=== PATIENT | female | born 1980 | race Caucasian/White ===

== ENCOUNTER 2016-12-10 08:44 | Inpatient (IN) | payer OTHER ==
--- NOTE | ~2016-12-10 | PN ---
Unit #: [id number] #: [id number] Patient: VIVIANE NAYAK [id number] [facility] [address] [place] [address] [id number] I MR#: [id number] NAME: VIIVANE NAYAK ROOM: [facility] Age: 36 Sex: F Admission Date: 12/10/2016 : 1980 Attending Physician: Keith Frey M.D. Admitting Physician: Victor M Greer PROGRESS NOTES DATE 12/13/2016 DISCUSSION The patient is continuing to complain of anxiety and auditory hallucinations but to her credit does not request benzodiazepine medication today. Rather she request further upward titration of Geodon which will be increased to 60 mg b.i.d. Dictated by... Keith Frey M.D. CHAPIS/celestino TD: 12/13/2016 16:06 JOB #: [id number] SUSANNA PROGRESS NOTES X Keith Frey MD PROGRESS NOTE
--- NOTE | ~2016-12-10 | PN ---
Unit #: [id number] #: [id number] Patient: VIVIANE NAYAK [id number] [facility] [address] [place] [address] [id number] Marybel MR#: [id number] NAME: VIVIANE NAYAK ROOM: P121 Age: 36 Sex: F Admission Date: 12/10/2016 : 1980 Attending Physician: Keith Frey M.D. Admitting Physician: Victor M Greer NOTES DATE 12/11/2016 DISCUSSION The patient's incessant med seeking persist. The patient actually going so far as to interrupt this physician while seeing other patients to demand initiation of Ambien or benzodiazepine medication. She does report a history of over sedation with Seroquel and wishes to initiate a medication for "my mood and anxiety." I will begin Geodon 20 mg twice daily. She continues to endorse positive suicidal ideation but appears quite comfortable during today's interview. She did receive a dose of phenobarbital last evening after she had reported that she felt a "a seizure coming on" and is now requesting continuation of this medication. I have explained that phenobarbital is an older medication of which will not be continued. Dictated by... Keith Frey M.D. CB/kasandra TD: 12/12/2016 00:03 JOB #: [id number] SUSANNA PRADHAN NOTES X Keith Frey MD PROGRESS NOTE
--- NOTE | ~2016-12-10 | PN ---
Unit #: [id number] #: [id number] Patient: VIVIANE NAYAK [id number] [facility] [address] [place] [address] [id number] I MR#: [id number] NAME: VIVIANE NAYAK ROOM: [facility] Age: 36 Sex: F Admission Date: 12/10/2016 : 1980 Attending Physician: Keith Frey M.D. Admitting Physician: Victor M Greer PROGRESS NOTES DATE 12/12/2016 DISCUSSION The patient remains completely preoccupied with initiation of benzodiazepine medications in spite of the fact that this physician has firmly informed her that he has no intention of prescribing any such medication. She is reporting auditory hallucinations, and I will increase her Geodon to 40 mg twice daily. Dictated by... Keith Frey M.D. CB/raad TD: 12/12/2016 14:58 JOB #: [id number] SUSANNA PROGRESS NOTES X Keith Frey MD PROGRESS NOTE
--- NOTE | ~2016-12-10 | HP ---
Unit #: [id number] #: [id number] Patient: VIVIANE NAYAK [id number] [place] [address] [id number] I MR#: [id number] NAME: VIVIANE NAYAK ROOM: P121 Age: 36 Sex: F Admission Date: 12/10/2016 : 1980 Attending Physician: Keith Frey M.D. Admitting Physician: Keith Frey M.D. HISTORY AND PHYSICAL HISTORY OF PRESENT ILLNESS Viviane is a 36 year old admitted to [address] [place] [address] with increased anxiety. She has had numerous admissions to this facility. PAST MEDICAL HISTORY 1. Long history of polysubstance abuse to include heroin and alcohol. She denies anything currently. She is currently being treated with Suboxone. 2. Seizure disorder. 3. Morbid obesity. 4. Crohn disease. 5. Chronic obstructive pulmonary disease. 6. History of kidney stones. 7. History of psoriasis. 8. History of CHI. PAST SURGICAL HISTORY 1. Cholecystectomy. 2. History of ectopic . 3. Right hand. 4. Fractured leg with ORIF. 5. Right knee. 6. Partial collectomy. ALLERGIES Latex, Keflex. SOCIAL HISTORY Smokes one pack per day. Drinks alcohol on occasion. Has history of IV heroin but denies anything currently. FAMILY HISTORY Medically noncontributory. REVIEW OF SYSTEMS CONSTITUTIONAL: No fever or chills. HEENT: Denies any sore throat, ear pain or runny nose. CARDIOVASCULAR: Denies chest pain, irregular heart rhythm or palpitations. CHEST: Denies shortness of breath or cough. No hemoptysis. GASTROINTESTINAL: Denies nausea, vomiting, diarrhea or chronic constipation. Unit #: [id number] #: [id number] Patient: VIVIANE NAYAK ENDOCRINE: Denies history of increased thirst or urination. No recent significant weight loss or gain. GENITOURINARY: Denies dysuria, frequency, or hematuria. SKIN: Denies any rashes. HEMATOLOGIC: Denies history of increased bleeding or bruising. MUSCULOSKELETAL: Denies any hot, swollen joints. No generalized muscle pain. NEUROLOGIC: Denies problems with vision or speech. No frequent, severe headaches. No numbness, tingling or weakness in any extremities. Denies loss of bladder or bowel control. CURRENT MEDICATIONS 1. Prozac 20 mg daily 2. Suboxone 8/ 1 tab sublingually b.i.d. 3. Keppra 750 mg b.i.d. 4. Eskalith CR 450 mg b.i.d. 5. Milk of Magnesia p.r.n. 6. Maalox p.r.n. 7. Tylenol p.r.n. 8. Detox protocol PHYSICAL EXAMINATION GENERAL: Alert, obese, in no apparent distress. VITAL SIGNS: Blood pressure 130/70, heart rate 80, respirations 16, temperature 98.6. SKIN: Warm and dry without rash or lesion. HEENT: Normocephalic. TMs not viewed. Oral and nasal passages clear. Conjunctivae clear. Pupils equal, round and reactive to light and accommodation. Extraocular movements intact. NECK: Supple without lymphadenopathy or thyromegaly. HEART: Regular rate and rhythm without murmur. LUNGS: Clear. ABDOMEN: Soft, nontender. : Not done. EXTREMITIES: No evidence of cyanosis, clubbing or edema. Moves all extremities without focal deficit. NEUROLOGICAL: Grossly within normal limits. Cranial Nerves: II: Visual smith are intact. III, IV AND : Extraocular movements are intact. Pupils are equal, round and reactive to light. V: Facial sensation is grossly normal. VII: Facial movements and expression are normal. VIII: Auditory acuity grossly intact. IX, X: Uvula is midline. Phonation is normal. XI: Patient shrugs shoulders and turns head normally. XII: Tongue protrudes in the midline. Sensory and Motor Function: Sensory and motor sensation is grossly normal. Motor: moves all extremities well. Coordination: Gait is normal. Deep Tendon Reflexes: Intact. IMPRESSION Psychiatric admission. RECOMMENDATIONS PSYCHIATRIC: Per psychiatrist. MEDICAL: I see no contraindications to participating in facility's activities. MEDICAL PROGNOSIS Unit #: [id number] #: [id number] Patient: VIVIANE NAYAK Good. MEDICAL CONDITION Stable. Dictated by... Viviane Catherine P.A.-C. for Victor M Lynn/kasandra TD: 12/11/2016 01:55 JOB #: [id number] HISTORY AND PHYSICAL X Viviane Catherine HISTORY AND PHYSICAL
--- NOTE | ~2016-12-10 | PA ---
Unit #: [id number] #: [id number] Patient: VIVIANE NAYAK [id number] [facility] [address] [place] [address] [id number] Marybel MR#: [id number] NAME: VIVIANE NAYAK ROOM: P121 Age: 36 Sex: F Admission Date: 12/10/2016 : 1980 Date of Assessment: 12/10/2016 Attending Physician: Keith Frey M.D. Admitting Physician: Keith Frey M.D. PSYCHIATRIC ASSESSMENT IDENTIFYING INFORMATION The patient is a 36-year-old white female admitted to the [address] [place] [address] with suicidal ideation and some psychotic thinking. CHIEF COMPLAINT "When can I have my Xanax" INFORMANT(S) The patient, reliability is fair. HISTORY OF PRESENT ILLNESS The patient is a 36-year-old white male brought who presented to this facility reporting that she had been off medications for some time after she had been incarcerated for running from police. The patient reports that she had a seizure while in correction but reports that the version of events provided in the chart are not exactly accurate with regards to her compliance or lack thereof with medication. The patient was apparently jailed for 20 days and had recently been homeless. She has a history of significant substance abuse including abuse of heroin, methamphetamine and illicitly prescribed pain medications and is now prescribed Suboxone through the auspices of the [facility]. She also suffers from a seizure disorder for which she takes Lamictal and has recently been started on lithium carbonate medication to which she reports a history of positive response. When seen today the patient spends the better part of the interview demanding reinitiation of alprazolam which she claims was prescribe by women's health at [facility] at a dose of 2 mg twice daily. She as previously has been under the care of Dr. Armendariz at this facility and was last admitted in [address] Armendariz care. At that time her medications were Celexa and Seroquel. PAST PSYCHIATRIC HISTORY The patient has a long history of chemical dependence and is currently taking Suboxone. Her other prescribed psychotropic medications includes lithium carbonate only. PAST MEDICAL HISTORY The patient suffers from GERD and a seizure disorder. She is morbidly obese. MEDICATIONS 1. [place] carbonate 2. Keppra Unit #: [id number] #: [id number] Patient: VIVIANE NAYAK 3. Protonix 4. Suboxone ALLERGIES Cephalosporin, cephalexin and latex. FAMILY HISTORY Not contributory. SOCIAL HISTORY The patient has an extensive substance abuse history and as noted previously was recently incarcerated for fleeing police. She denies current abuse of any psychoactive substances. MENTAL STATUS EXAMINATION At this time reveals the patient to be a morbidly obese white female appearing her stated age. She is in no apparent physical distress at the time of the examination. She is awake, alert and oriented in all spheres. Her mood is mildly dysphoric. Her affect congruent. Speech is generally relevant and coherent. There are no gross deficits in memory or cognition noted. Intelligence is judged to be in the average range based on fund of knowledge. The patient is less than optimally cooperative during interview. She is currently endorsing positive suicidal ideation. She denies homicidal ideation. She continues to endorse positive auditory hallucinations and paranoia. Her judgment and insight appear to be significantly impaired. ASSETS AND LIABILITIES ASSETS: To be assessed. LIABILITIES: Lack of resources. ADMITTING DIAGNOSES 1. Major depressive disorder recurrent moderate. 2. Opioid use disorder. 3. Borderline personality traits versus disorder. 4. Seizure disorder. 5. Morbid obesity. 6. Crohn disease. 7. Chronic obstructive pulmonary disease. 8. History of closed head injury. PSYCHIATRIC PLAN/TREATMENT GOALS The patient remains hospitalized for safety and stabilization. It is interesting to note that Dr. Armendariz's discharge summary indicates that the patient was as fixated on reinitiation of benzodiazepines during that admission as she was during this evaluation. I have sternly informed the patient that under no circumstances will she be provided with any benzodiazepine medication apart from a [facility] detox protocol which will be administered given her concerns regarding fear of withdrawal from her allegedly prescribed medications. ESTIMATED LENGTH OF STAY Three to five days with followup to take place to the auspices of community mental health resources. Unit #: [id number] #: [id number] Patient: VIVIANE NAYAK Dictated by.Gustavo Frey M.D. CHAPIS/kasandra TD: 12/11/2016 00:01 JOB #: [id number] PSYCHIATRIC ASSESSMENT X Keith Frey MD PSYCHIATRIC ASSESSMENT
--- NOTE | ~2016-12-10 | DS ---
Unit #: [id number] #: [id number] Patient: VIVIANE NAYAK [id number] [place] [address] [id number] I MR#: [id number] NAME: VIVIANE NAYAK ROOM: [facility] Age: 36 Sex: F Admission Date: 12/10/2016 : 1980 Discharge Date: 12/14/2016 Attending Physician: Keith Frey M.D. DISCHARGE SUMMARY REASON FOR ADMISSION The patient is a 36-year-old white female, admitted to the [facility] with complaints of increasing depression. HOSPITAL COURSE The patient was admitted to the [address] [place] [address] unit and placed on suicide precautions. Her med seeking was for the first 3 days of hospitalization, almost constant; however, she did comply with medications and did do well with upper titration of Geodon to a dose of 60 mg b.i.d. [place] carbonate was continued at its previous dose. The patient's participation within the therapeutic milieu left much to be desired, but otherwise her stay in the hospital was an uneventful one. By 12/14/2016, the patient requested discharge. She was denying suicidal ideation at that time and discharge was ordered. FINAL DIAGNOSES Opioid use disorder; bipolar disorder, most recent episode depressed; seizure disorder. Urinary tract infection. DISPOSITION ON DISCHARGE The patient is discharged on the following medications; Geodon 60 mg b.i.d. for mood stabilization, Eskalith CR 450 mg b.i.d. for mood stabilization, Keppra 750 mg b.i.d. for seizure disorder, Bactrim DS one tablet b.i.d. for urinary tract infection, Protonix 20 mg daily for GERD, Suboxone 8/2 one tablet daily for opioid dependence. This physician will not provide a prescription for Suboxone. FOLLOWUP The patient will follow up through the auspices of the [facility] Department of Psychiatry. PROGNOSIS Her prognosis is considered fair. Dictated by... Keith Frey M.D. CB/bhavna TD: 12/15/2016 05:21 Unit #: [id number] #: [id number] Patient: VIVIANE NAYAK JOB #: [id number] DISCHARGE SUMMARY X Keith Frey MD DISCHARGE SUMMARY
--- NOTE | ~2016-12-10 | CO ---
Unit #: [id number] #: [id number] Patient: VIVIANE NAYAK [id number] [place] [address] [id number] I MR#: [id number] NAME: VIVIANE NAYAK ROOM: [facility] Age: 36 Sex: F Admission Date: 12/10/2016 : 1980 Attending Physician: Keith Frey M.D. Consultation Date: 12/11/2016 CONSULTATION REPORT SUBJECTIVE Viviane is a 36-year-old with an abnormal urinalysis on admission. She had no complaints of urgency, frequency, or dysuria. We have been asked to assess and treat. There have been no recorded increased temperatures. DIAGNOSTIC STUDIES LABORATORY RESULTS: Admission urinalysis 2+ bacteria, 5 to 10 wbc's, 10 to 25 rbc's. ASSESSMENT Urinary tract infection. PLAN Bactrim DS one p.o. b.i.d. x3 days. Dictated by... Viviane Catherine P.A.-C. for Victor M Lynn/bhavna TD: 12/17/2016 22:29 JOB #: [id number] CONSULTATION REPORT X Viviane Catherine X CONSULTATION REPORT
[~2016-12-10 08:44] MED LIST: ADVAIR; ADVAIR 1001 DISK W/D PO; ADVAIR 250-501 EACH IH; ADVAIR INH; ADVIL200 M1 PO; ADVIL200 M2; ALBUTEROL0.83 MG/ML NEB; ALBUTEROL17 GM; ALBUTEROL17 GM INH; ALBUTEROL17 GM PO; ALPRAZOLAM; ALPRAZOLAM PO; AMBIEN10 MG PO; ANTIVERT PO; ATARAX PO; ATIVAN PO; BACTRIM DS TABL1 TA1 PO; BENADRYL25 M3 PO; BP MED PO; BUSPAR15 MG PO; CATAPRES0.1 MG PO; CELEXA PO; CIPRO PO; CIPRO250 MG PO; CIPRO500 MG/5 M PO; CLEOCIN HCL300 M1 PO; CLINDAMYCIN HC300 MG PO; CLONIDINE HCL0.1 MG PO; CLONIDINE PO; COLACE PO; DESYREL100 MG PO; DIFLUCAN PO; DIOVAN; DIOVAN PO; DIOVAN80 M1 PO; DOXEPIN HCL100 MG PO; DULCOLAX5 MG PO; DUONEB 2.5-0.5 M3 ML NEB; DURAGESIC TOP; EC-NAPROSYN500 MG PO; FLAGYL PO; FLEET ENEMA133 M1 PR; FLEXERIL PO; FOLIC ACID PO; HYDROCODONE-APA1 T30 PO; IBUPROFEN800 MG; IMPLANON68 MG/IMPL; K-DUR20 ME1 PO; KEPPRA500 M1 PO; KLONOPIN SL; KLONOPIN2 MG PO; LASIX20 MG PO; LIBRIUM PO; LOVENOX SUBQ; MAGIC MOUTHWASH PO; METHADONE PO; MIRALAX255 GM PO; MIRAPEX PO; MOBIC PO; NAPROXEN PO; NEURONTIN; NEURONTIN300 MG PO; NEURONTIN600 MG PO; NO MEDICATIONS; NYSTATIN15 GM OINT EXT; OXYCONTIN; PEPCID AC20 M2 PO; PERCOCET 10/3251 TAB PO; PERCOCET 5-3251 TAB PO; PERCOCET10 PO; PHENERGAN PO; PHENERGAN PR; PHENERGAN SUPP25 M1 PR; PHENERGAN SUPP25 MG PR; PHENERGAN12.5 MG PO; PHENERGAN12.5 MG/SU PR; PHENERGAN25 M1 PO; PHENERGAN25 MG PO; PREDNISONE PO; PRENATAL MULITV1 TAB PO; PRILOSEC20 MG PO; PYRIDIUM PO; PYRIDIUM100 MG PO; REGLAN5 MG PO; SEROQUEL; SEROQUEL PO; SEROQUEL300 M1 PO; SEROQUEL400 MG PO; STOMACH MEDS; SUBOXONE 8 MG-1 EAC1 SL; SUBOXONE 8 MG-1 EACH; SUBOXONE 8 MG-1 EACH SL; SUBOXONE SL; SUBUTEX2 MG SL; ULTRAM PO; VICODIN 5/1 TAB 5/50 PO; VICODIN 5/500 T1 TAB PO; VISTARIL50 MG PO; XANAX1 MG PO; ZOFRAN ODT4 MG PO; ZOFRAN8 MG PO; ZOFRANODT PO; [UNRECOGNIZED DRUG - OTHER] TP; [UNRECOGNIZED DRUG - REMARK]
[2016-12-10 19:19] LABS: URINE APPEARANCE CLOUDY; URINE BILIRUBIN NEG (NEG); URINE BLOOD 1+ (NEG); URINE COLOR YELLOW; URINE GLUCOSE NEG (NEG); URINE KETONE NEG (NEG); URINE LEUKOCYTE ESTERASE 2+ (NEG); URINE NITRATE NEG (NEG); URINE PH 7.5 (5-8); URINE PROTEIN NEG (NEG); URINE SPECIFIC GRAVITY 1.012 (1.003-1.035); URINE UROBILINOGEN 0.2 MG/DL (NEG)
[2016-12-10 19:21] LABS: URBCS1 AUWI 0-2 /[HPF] (0-2); URINE BACTERIA AUWI 2+ (NEGATIVE); URINE SQUAMOUS EPITHELIAL CELL MOD /[HPF]
[2016-12-10 19:29] LABS: AMPHETAMINE POS (NEG); BARBITURATES NEG (NEG); BENZODIAZEPINES NEG (NEG); COCAINE NEG (NEG); MARIJUANA NEG (NEG); OPIATES NEG (NEG); TRICYCLIC ANTIDEPRESSANTS NEG (NEG); U METHADONE NEG (NEG)
[2016-12-11 12:29] LABS: BASOPHIL# 0.2 X10e3 (0-0.3); BASOPHIL% 1.1 % (0-2.5); EOSINOPHIL# 0.5 X10e3 (0-0.7); EOSINOPHIL% 3.3 % (0.0-7.0); HEMATOCRIT 38.4 % (35.0-45.0); HEMOGLOBIN 11.9 gm/dL (12.0-16.0); LYMPHOCYTE# 2.5 X10e3 (1.0-3.5); LYMPHOCYTE% 18.1 % (17.0-45.0); MEAN CELL VOLUME 82.6 FL (83-96); MEAN CORPUSCULAR HEMOGLOBIN 25.6 PG (28-34); MEAN PLATELET VOLUME 9.8 FL (6.5-11.5); MONOCYTE# 0.7 X10e3 (0-1.0); MONOCYTE% 5.3 % (3.0-12.0); NEUTROPHIL% 72.2 % (40-75); PLATELET COUNT 286 X10e3 (140-420); RED BLOOD COUNT 4.65 X10e (3.90-5.30); RED CELL DISTRIBUTION WIDTH 17.6 % (11.0-15.5); WHITE BLOOD COUNT 13.8 X10e3 (4.0-10.5)
[2016-12-11 12:32] LABS: DIFF IND NO
[2016-12-11 12:50] LABS: ALBUMIN SERUM 3.8 g/dL (3.5-5.0); ALKALINE PHOSPHATASE 64 U/L (32-92); ALT (SGPT) 27 U/L (10-40); AST (SGOT) 24 U/L (10-42); BILIRUBIN,TOTAL 0.4 mg/dL (0.2-2.0); BLOOD UREA NITROGEN 8 mg/dL (9-23); BUN/CREATININE RATIO 11.42; CALCIUM SERUM 9.3 mg/dL (8.4-10.2); CARBON DIOXIDE 27 mmol/L (22-31); CHLORIDE 104 mmol/L (100-111); CREATININE SERUM 0.7 mg/dL (0.6-1.4); GLOM FILT RATE Estimated ABOVE60 mL/min (>60); GLUCOSE FASTING 94 mg/dL (70-110); POTASSIUM 3.9 mmol/L (3.5-5.1); PROTEIN TOTAL SERUM 6.2 g/dL (6.0-8.3); SODIUM 139 mmol/L (135-145)
[2016-12-11 12:53] LABS: THYROID STIMULATING HORMONE 3.4 uIU/ml (0.34-5.60)
[2016-12-11 13:00] LABS: FREE THYROXIN (T4) 0.9 ng/dL (0.58-1.64)
== END 2016-12-14 17:00 | disposition home or self-care (01) | DRG 885 ==
LOC: POF 08:44 → P1E 09:59 → P1S 10:49
PROVIDERS: Specialist
PROC: HZ2ZZZZ Detoxification Services for Substance Abuse Treatment (ICD-10-PCS; principal; 2016-12-10)
DX: F33.1 Major depressive disorder, recurrent, moderate (principal); F11.20 Opioid dependence, uncomplicated; G40.909 Epilepsy, unspecified, not intractable, without status epilepticus; K50.90 Crohn's disease, unspecified, without complications; E66.01 Morbid (severe) obesity due to excess calories; N39.0 Urinary tract infection, site not specified; F60.3 Borderline personality disorder; J44.9 Chronic obstructive pulmonary disease, unspecified; L40.9 Psoriasis, unspecified; F17.200 Nicotine dependence, unspecified, uncomplicated; Z88.8 Allergy status to other drugs, medicaments and biological substances; Z91.040 Latex allergy status
CPT/HCPCS: 80053; 80307; 81003; 84439; 84443; 85025; J1200

== ENCOUNTER 2017-02-01 20:34 | Inpatient (IN) | payer OTHER ==
--- NOTE | ~2017-02-01 | CR72 ---
[facility]. [facility] A Service of [facility] & [facility] RADIOLOGY TEXT RESULTS PATIENT: VIVIANE NAYAK LOCATION: [facility] : [birth year] UNIT #: [id number] AGE: [address]: Franco Mo MD SEX: F ORDER DR: [id number] [address] [address] [id number] E MR#: [id number] Acc #: [id number] NAME: VIVIANE NAYAK : 1980 SEX: F STUDY DATE/TIME: 02/01/2017 21:53 UNIT: SED ROOM: STUDY DESCRIPTION: CR Chest Single View Portable Attending Physician: Pedro Montalvo M.D. Referring Physician: Pedro Montalvo M.D. Ordering Physician: Pedro Montalvo M.D. Primary Care Physician: No Primary Care Physician MEDICAL IMAGING REPORT This report is preliminary unless electronic signature is present. EXAM Portable chest. INDICATIONS Mental status change. Confusion today. PROCEDURE Frontal view chest. COMPARISON 01/09/2017 FINDINGS Heart size is probably stable when allowing for differences in technique. Lungs are clear. No pleural fluid or pneumothorax. IMPRESSION No active process. Dictated by... Will Rowland M.D. THIS IS AN ELECTRONICALLY VERIFIED REPORT Will Rowland M.D. at 02/04/2017 9:46 AM TOSHA/baljit TD: 02/01/2017 22:26 JOB #: [id number] MEDICAL IMAGING REPORT Page 1 of 1
--- NOTE | ~2017-02-01 | EKG ---
PATIENT: VIVIANE NAYAK UNIT #: [id number] Ventricular Rate: 87 BPM Atrial Rate: 87 BPM P-R Interval: 172 ms QRS Duration: 96 ms Q-T Interval: 374 ms QTC Calculation(Bezet): 450 ms P Quincy: 55 degrees Calculated R Quincy: 11 degrees Calculated T Quincy: 43 degrees Diagnosis Line: Normal sinus rhythm Diagnosis Line: Poor R wave progression questionable lead position Diagnosis Line: or body habitus Otherwise normal ECG Diagnosis Line: Diagnosis Line: Confirmed by NANETTE SANCHEZ MD ([id number]) on 02/07/2017 Diagnosis Line: 11:55:45 AM INTERPRETING MD: DANIEL GARAY
--- NOTE | ~2017-02-01 | HP ---
Unit #: [id number] #: [id number] Patient: VIVIANE NAYAK [id number] [address] [place], [place] [address] [id number] I MR#: [id number] NAME: VIVIANE NAYAK ROOM: 468 Age: 37 Sex: F Admission Date: 02/02/2017 : 1980 Attending Physician: Franco Mo M.D. Referring Physician: Pedro Montalvo M.D. Primary Care Physician: No Primary Care Physician HISTORY AND PHYSICAL CHIEF COMPLAINT Altered mental status. HISTORY OF PRESENT ILLNESS The patient is a pleasant, 37-year-old female who really does not remember the events that culminated in her presenting to the emergency room but was admitted from the emergency room. She has a history of seizures. She felt that she may have had a seizure episode. She has not seen a neurologist in many years. She was given some IM Ativan in the emergency room and she seems to be completely with it today. She states that she has been compliant with her antiseizure medications. She is having some difficulty walking and feeling some discomfort in her right side at this time. The patient denies any headache, nausea, vomiting. The patient denies fever. No rash. No history of sick contact. No history of head trauma. She did receive some Geodon as well as Ativan in the emergency room. Psychiatry has been consulted at this time. PAST MEDICAL HISTORY Polysubstance abuse, anxiety, depression, seizure disorder, hypertension, COPD, asthma, history of Crohn's. PAST SURGICAL HISTORY Cholecystectomy, foot surgery with pins and screws, right knee surgery, salpingectomy, tubal ligation. SOCIAL HISTORY The patient denies any tobacco use, alcohol use or illicit drug use at this time. FAMILY HISTORY Unobtainable, noncontributory. ALLERGIES Cephalosporins which give her hives, latex. HOME MEDICATIONS Not reconciled at this time. 1. Simethicone 125 mg p.o. twice daily. 2. BuSpar 5 mg p.o. twice daily. 3. [place] carbonate 450 mg p.o. twice daily. 4. Diclofenac sodium 75 mg p.o. twice daily. 5. Vistaril 25 mg p.o. two times a day. 6. Keppra 750 mg p.o. twice daily. 7. Zyrtec 10 mg p.o. daily. Unit #: [id number] #: [id number] Patient: VIVIANE NAYAK 8. Buprenorphine and naloxone one tablet sublingual daily. 9. Acetaminophen. 10. Diphenhydramine 500/25 mg p.o. daily. REVIEW OF SYSTEMS As stated above. A complete 10-point review of systems has been done and pertinent positives are noted. PHYSICAL EXAMINATION GENERAL APPEARANCE: She was comfortable, not in acute distress. VITAL SIGNS: Blood pressure 116/86. Pulse 84. Respiratory rate 21. Temperature 98.2. HEENT: Pupils are equal and reactive to light and accommodation. NECK: Supple without thyromegaly. ABDOMEN: Full, moves with respirations, soft. No palpable organomegaly. LYMPHATIC: No enlarged peripheral lymphadenopathy that I could appreciate. EXTREMITIES: Mild 1+ bilateral lower extremity edema. SKIN: Warm and dry with no rashes. CENTRAL NERVOUS SYSTEM: Alert and oriented x3, moves all limbs spontaneously. I did not observe her gait; however, she is describing some dysesthesia and discomfort on her right side. DIAGNOSTIC STUDIES LABORATORY: Chemistry: Glucose 106, BUN and creatinine 8 and 0.6, sodium and potassium 141 and 3.2, chloride 179. CBC: WBC 17.5, hemoglobin and hematocrit 13.3 and 42.2, platelet count 330. Urinalysis essentially negative. Urine tox is positive for benzodiazepines and TCH. ASSESSMENT AND PLAN 1. Altered mental status. I suspect that she may have some (1) deficit. Neurologic presentation that she is actually describing may represent some Chris paralysis phenomenon. Even though Psychiatry has been consulted, I will consult Dr. Gunter. She may need to have her Keppra increased. We will get a Keppra level and we will check a CBC and BMP in the morning. 2. Leukocytosis. This is probably stress induced. Repeat this in the morning. 3. Hypertension. Continue medication. 4. Polysubstance abuse. 5. Hypokalemia. We will replete. Put her on a magnesium and potassium replacement protocol. For DVT prophylaxis, put her on SCDs while in bed. For GI prophylaxis, put her on Protonix 40 mg p.o. daily. Dictated by OsaVictor M Gil TD: 02/02/2017 11:01 JOB #: [id number] Unit #: [id number] #: [id number] Patient: VIVIANE NAYAK HISTORY AND PHYSICAL Page 1 of 1 X Franco Mo MD X HISTORY AND PHYSICAL
[2017-02-01 19:56] LABS: BASOPHIL# 0.2 X10e3 (0-0.3); BASOPHIL% 1.2 % (0-2.5); EOSINOPHIL% 0.1 % (0.0-7.0); HEMATOCRIT 40.8 % (35.0-45.0); HEMOGLOBIN 13.3 gm/dL (12.0-16.0); LYMPHOCYTE# 1.2 X10e3 (1.0-3.5); LYMPHOCYTE% 9.3 % (17.0-45.0); MEAN CELL VOLUME 83.1 FL (83-96); MEAN CORPUSCULAR HEMOGLOBIN 27.1 PG (28-34); MEAN CORPUSCULAR HGB CONC 32.6 g/dL (30-36); MEAN PLATELET VOLUME 8.7 FL (6.5-11.5); MONOCYTE# 0.2 X10e3 (0-1.0); MONOCYTE% 1.7 % (3.0-12.0); NEUTROPHIL# 11.7 X10e3 (1.5-7.1); NEUTROPHIL% 87.7 % (40-75); PLATELET COUNT 322 X10e3 (140-420); RED CELL DISTRIBUTION WIDTH 17.2 % (11.0-15.5); URINE SOURCE CATH; WHITE BLOOD COUNT 13.4 X10e3 (4.0-10.5)
[2017-02-01 19:57] LABS: DIFF IND NO
[2017-02-01 20:00] LABS: URINE APPEARANCE CLEAR; URINE BILIRUBIN NEG (NEG); URINE BLOOD TRACE-INTACT (NEG); URINE COLOR YELLOW; URINE GLUCOSE NEG (NORM); URINE KETONE NEG (NEG); URINE LEUKOCYTE ESTERASE NEG (NEG); URINE NITRATE NEG (NEG); URINE PH 6.5 (5-8); URINE PROTEIN NEG (NEG); URINE UROBILINOGEN 0.2 MG/DL (NORM)
[2017-02-01 20:03] LABS: MICRO INDICATED? YES
[2017-02-01 20:06] LABS: INR 1.1; PROTHROMBIN TIME (PATIENT) 12.3 SECONDS (9.5-12.4)
[2017-02-01 20:09] LABS: AMPHETAMINE NEG (NEG); BARBITURATES NEG (NEG); BENZODIAZEPINES POS (NEG); COCAINE NEG (NEG); MARIJUANA NEG (NEG); OPIATES NEG (NEG); TRICYCLIC ANTIDEPRESSANTS POS (NEG); U METHADONE NEG (NEG)
[2017-02-01 20:13] LABS: CULTURE INDICATED? NO; PARTIAL THROMBOPLASTIN TIME 27.1 SECONDS (25.6-38.1); URINE BACTERIA NEG (NEG); URINE SQUAMOUS EPITHELIAL CELL OCCAS /[HPF]
[2017-02-01 20:16] LABS: ALBUMIN SERUM 4.3 g/dL (3.5-5.0); ALKALINE PHOSPHATASE 73 U/L (32-92); ALT (SGPT) 35 U/L (10-40); AST (SGOT) 26 U/L (10-42); BILIRUBIN,TOTAL 0.2 mg/dL (0.2-2.0); BLOOD UREA NITROGEN 10 mg/dL (9-23); BUN/CREATININE RATIO 14.28; CALCIUM SERUM 9.6 mg/dL (8.4-10.2); CARBON DIOXIDE 23 mmol/L (22-31); CHLORIDE 109 mmol/L (100-111); CREATININE SERUM 0.7 mg/dL (0.6-1.4); GLOM FILT RATE Estimated 109.1 mL/min (>60); GLUCOSE FASTING 116 mg/dL (70-110); POTASSIUM 3.6 mmol/L (3.5-5.1); PROTEIN TOTAL SERUM 7.4 g/dL (6.0-8.3); SALICYLATE <4.0 mg/dL; SODIUM 141 mmol/L (135-145)
[2017-02-01 20:17] LABS: ACETAMINOPHEN <10 ug/mL; ALCOHOL BLOOD <5 mg/dL (0); BILIRUBIN, DIRECT <0.1 mg/dL (0.0-0.2); BILIRUBIN,INDIRECT 0.1 mg/dL (0.0-0.9)
[2017-02-01 20:20] LABS: POC - CKMB <1.0 ng/mL (0.0-7.9); POC - TROPONIN <0.05 ng/mL (<=0.05)
[2017-02-02] MEDS ORDERED: SIMETHICONE125 M1 PO (02:47)
[2017-02-02] MEDS ORDERED: BUSPAR5 M1 PO (02:47)
[2017-02-02] MEDS ORDERED: VOLTAREN75 MG PO (02:48)
[2017-02-02] MEDS ORDERED: VISTARIL PO (02:48)
[2017-02-02] MEDS ORDERED: LITHIUM CARBON450 M1 PO (02:48)
[2017-02-02] MEDS ORDERED: ZYRTEC10 M2 PO (02:49)
[2017-02-02] MEDS ORDERED: KEPPRA750 M1 PO (02:49)
[2017-02-02] MEDS ORDERED: BUPRENORPHIN-N1 EACH SL (02:50)
[2017-02-02] MEDS ORDERED: ACETADRYL 500-1 EACH PO (02:52)
[2017-02-02 03:55] LABS: BASOPHIL# 0.1 X10e3 (0-0.3); BASOPHIL% 0.5 % (0-2.5); EOSINOPHIL% 0.2 % (0.0-7.0); HEMATOCRIT 42.2 % (35.0-45.0); HEMOGLOBIN 13.3 gm/dL (12.0-16.0); LYMPHOCYTE# 2.5 X10e3 (1.0-3.5); LYMPHOCYTE% 14.2 % (17.0-45.0); MEAN CELL VOLUME 84.8 FL (83-96); MEAN CORPUSCULAR HEMOGLOBIN 26.8 PG (28-34); MEAN CORPUSCULAR HGB CONC 31.6 g/dL (30-36); MONOCYTE% 5.5 % (3.0-12.0); NEUTROPHIL% 79.6 % (40-75); PLATELET COUNT 330 X10e3 (140-420); RED BLOOD COUNT 4.98 X10e (3.90-5.30); WHITE BLOOD COUNT 17.5 X10e3 (4.0-10.5)
[2017-02-02 03:57] LABS: DIFF IND YES
[2017-02-02 04:12] LABS: BUN/CREATININE RATIO 13.33; CALCIUM SERUM 9.6 mg/dL (8.4-10.2); CREATININE SERUM 0.6 mg/dL (0.6-1.4); GLOM FILT RATE Estimated 114.8 mL/min (>60); POTASSIUM 3.2 mmol/L (3.5-5.1)
[2017-02-02 04:19] LABS: ANISOCYTOSIS MOD; PLATELET ESTIMATE INCREASED (NORMAL)
== END 2017-02-02 15:04 | disposition left against medical advice (07) | DRG 948 ==
LOC: SED 20:34 → C4C 02-02 02:44
PROVIDERS: Emergency Medicine; Internal Medicine
DX: R41.82 Altered mental status, unspecified (principal); G83.84 Todd's paralysis (postepileptic); K50.90 Crohn's disease, unspecified, without complications; G40.909 Epilepsy, unspecified, not intractable, without status epilepticus; D72.829 Elevated white blood cell count, unspecified; I10 Essential (primary) hypertension; F19.10 Other psychoactive substance abuse, uncomplicated; E87.6 Hypokalemia; F41.9 Anxiety disorder, unspecified; F32.9 Major depressive disorder, single episode, unspecified; J45.909 Unspecified asthma, uncomplicated; J44.9 Chronic obstructive pulmonary disease, unspecified
CPT/HCPCS: 36415; 71010; 80048; 80076; 80178; 80299; 80307; 81003; 82140; 82553; 82947; 83605; 84484; 84703; 85025; 85610; 85730; 87040; 93005; 96361; 96372; 96374; 96376; 99285; G0480; J2060; J3486

== ENCOUNTER 2017-02-03 17:27 | Observation (INO) | payer OTHER ==
--- NOTE | ~2017-02-03 | CO ---
Unit #: [id number] #: [id number] Patient: VIVIANE NAYAK [id number] [facility] [place], [place] [address] [id number] I MR#: [id number] NAME: VIVIANE NAYAK ROOM: 242 Age: 37 Sex: F Admission Date: 02/03/2017 : 1980 Attending Physician: Amadeo Keene M.D. Primary Care Physician: Primary Care Physician No Consultation Date: 02/05/2017 CONSULTATION REPORT REASON FOR CONSULTATION Depression and anxiety. HISTORY OF PRESENT ILLNESS Ms. Viviane Nayak is a 37-year-old female, seen in room 242, bed 1 at [facility] on 02/05/2017. The patient was admitted on 02/03/2017 with abdominal pain. The patient dressed casually, anxious, nervous, tearful, sad and dysphoric. The patient reported that she was on Xanax 2 mg b.i.d. at home, also taking lithium. The patient has a history of opioid abuse. Seemed sad and depressed, but denied any suicidal or homicidal ideation. Denied any psychotic symptom, but reported that she needs to go back on her medication. The patient has a history of polysubstance abuse. The patient was previously in [facility]. The patient was last admitted at [facility] from 12/10/2016 through 12/14/2016. PAST PSYCHIATRIC HISTORY Remarkable for history of previous multiple treatment at [facility] in 07/2015, 11/2016 with a diagnosis of major depressive disorder, opioid abuse, borderline personality disorder. MEDICAL HISTORY Remarkable for history of seizure disorder, COPD, history of opioid dependence. MEDICATIONS The patient is on simethicone, BuSpar, lithium, diclofenac, Vistaril, Keppra, Zyrtec, buprenorphine and naloxone. Please refer to MAR for detail. FAMILY HISTORY AND SOCIAL HISTORY The patient reports that she has a good support system. No history of any abuse. History of substance abuse as mentioned above. REVIEW OF SYSTEMS Complete review of systems is remarkable for severe anxiety. MENTAL STATUS EXAMINATION Vital signs; temperature 98.8, pulse 55, respirations 18, blood pressure 162/82, oxygen saturation 100%. General appearance, the patient dressed in hospital attire. Attention span and concentration, fair. Speech, regular rate. Oriented in time, place, and person. Mood and affect, sad and dysphoric. Thought process, circumstantial. Thought content, the patient denied any thoughts of harming self or others. Denied any Unit #: [id number] #: [id number] Patient: VIVIANE NAYAK psychotic symptom. Recent and remote memory, fair. Language, intact. Fund of knowledge, fair. Insight and judgment, fair to slightly impaired. DIAGNOSES Psychiatric: 1. Major depressive disorder, recurrent, severe, F33.2. 2. History of opioid abuse, moderate, F11.20. Secondary diagnosis: Deferred. Medical diagnosis: Please refer to H and P. Stressors: Psychosocial stressors. ASSESSMENT/PLAN 1. Supportive psychotherapy and psychoeducation were provided to the patient. 2. Educated about benefits and side effects of medication and course and prognosis of illness. 3. Advised to continue with current medication with a plan to resume Geodon 60 mg b.i.d., which she was on when she was last discharged from the hospital. The patient is to continue with lithium carbonate 450 mg b.i.d. If needed, please feel free to call if any questions. Telephone number is [phone]. The patient was also given crisis line number of [facility], [phone]. Dictated by... Victor M Sim/bhavna TD: 02/06/2017 02:04 JOB #: [id number] CONSULTATION REPORT Page 1 of 1 X Amari Mosqueda MD X CONSULTATION REPORT
--- NOTE | ~2017-02-03 | DS ---
Unit #: [id number] #: [id number] Patient: VIVIANE NAYAK [id number] [place], [place] [address] [id number] I MR#: [id number] NAME: VIVIANE NAYAK ROOM: 242 Age: 37 Sex: F Admission Date: 02/03/2017 : 1980 Discharge Date: 02/05/2017 Attending Physician: Amadeo Keene M.D. Primary Care Physician: Primary Care Physician No DISCHARGE SUMMARY DISCHARGE DIAGNOSES 1. Noncompliant, patient left against medical advice. 2. Crohn disease with abdominal pain. 3. Intractable nausea, vomiting, and diarrhea. 4. Hypokalemia. 5. Leukocytosis. 6. Essential hypertension. 7. Seizure disorder. 8. History of Crohn disease. 9. Anxiety and depression. 10. Chronic obstructive pulmonary disease. 11. Polysubstance abuse. 12. Weight loss. CONSULTANTS 1. Cardiology with [facility]. 2. Gastroenterology with Dr. Damico. PROCEDURE Patient had an upper GI endoscopy and biopsy as well as colonoscopy up to the cecum. DIAGNOSTIC STUDIES 1. Chest x-ray on 02/01/2017. Impression: No active process. 2. Abdominal x-ray on 02/03/2017. Impression: Unremarkable acute abdominal series. 3. CT abdomen and pelvis 02/04/2017. Impression: 1) There is no clearly acute abnormality seen in the abdomen or pelvis, status post cholecystectomy. 2) No biliary ductal dilation. 3) Mild hepatic enlargement, more pronounced than on prior examination in December of 2016. 4) Subtle 2.4 cm area of enhancement in the central right hepatic lobe probably not significantly changed from December 2016 but new from the contrast-enhanced study in 2011. No mass effect or architectural distortion. Probably subtle hemangioma or perfusion anomaly. 4. Focal fatty infiltration of the liver adjacent the falciform ligament. 5. Pancreas and kidneys unremarkable. 6. Status post appendectomy. 7. No acute abnormality along the alimentary canal. Uncomplicated sigmoid diverticulosis. 8. 2 cm cyst in the right ovary, likely dominant follicle for menstrual cycle. 9. 1.8 cm area of increased density in the subcutaneous fat of the upper right buttock new from December 2016, probably site of localized trauma Unit #: [id number] #: [id number] Patient: VIVIANE NAYAK or medicine administration. 10. On today's labs, patient's BMP glucose 131, BUN 9, creatinine 0.7, sodium 136, potassium 2.3, chloride 106, CO2 is 21, magnesium 2.0, total protein 6.7, albumin 4.0, total bilirubin 0.7. CBC with WBC of 14.8, RBC 4.79, hemoglobin 12.9, hematocrit 40.6, MCV 84.7, MCH 26.9, MCHC 31.7, RDW 16.4, platelets 297, MPV 9.0. Microbiology: Blood culture no growth 3 out of 3. Urine culture no growth. 11. Gastric biopsy was urease positive. HOSPITAL COURSE The patient is a 37-year-old female with past medical history of essential hypertension, seizure disorder, Crohn disease, anxiety and depression, COPD, and polysubstance abuse, who presented to the emergency department due to abdominal pain, nausea and vomiting. Please see the History and Physical for complete history of present illness. Emergency evaluation was worrisome for leukocytosis at 16,000. She was admitted for intractable abdominal pain, nausea and vomiting, leukocytosis. Dr. Damico of gastroenterology was consulted. Given patient's stated history of Crohn disease, questionable if her abdominal pain was due to Crohn's. Both an upper and a lower GI scope was done and patient was found to have severe ulcers in the antral area. Although the diagnosis of Crohn disease was conjecture, it was highly doubted the patient does have actual Crohn disease. Biopsy was taken and it is urease positive. The patient was also seen in consultation by Cardiology for her bradycardia. It was felt that this could be due to patient's electrolyte imbalance and she was fairly asymptomatic from the heart rate of 39. It was planned that she could see Dr. Evans in two months to be reevaluated with an EKG and 2D echo. The following day, I had attempted to see the patient early in the morning but, upon arrival to the floor, patient had left against medical advice. Patient's prognosis is poor given her poor insight into her actual medical problems. Again, please note that patient is urease positive but no treatments can be administered due to her leaving against medical advice. Dictated by... Les Adrian PA-C for Victor M Lynn TD: 02/05/2017 21:30 JOB #: [id number] Unit #: [id number] #: [id number] Patient: VIVIANE NAYAK DISCHARGE SUMMARY Page 1 of 1 X X DISCHARGE SUMMARY
--- NOTE | ~2017-02-03 | OR ---
Unit #: [id number] #: [id number] Patient: VIVIANE NAYAK [id number] [place], [place] [address] [id number] I MR#: [id number] NAME: VIVIANE NAYAK ROOM: 242 Date of Procedure: 02/04/2017 Admission Date: 02/03/2017 Surgeon: Luis Miguel Damico M.D. : 1980 Attending Physician: Amadeo Keene M.D. OPERATIVE REPORT PREOPERATIVE DIAGNOSES Nausea, vomiting, history of Crohn disease, hepatitis C, as well as abdominal pain and diarrhea. The patient also has history of polysubstance abuse. PROCEDURES PERFORMED Upper gastrointestinal endoscopy and biopsy as well as colonoscopy up to cecum. POSTOPERATIVE DIAGNOSES For upper endoscopy: 1. The patient had two gastric ulcers in the antral area. One was anterior ulcer about a centimeter in size with a deep crater. The second was a superficial ulcer about 4 to 5 mm in size posteriorly in the antrum with a grayish-white ulcer base. 2. Moderate prepyloric antral erosive gastritis. 3. Distal erosive confluent ulcerative esophagitis of moderate severity. 4. Rest of the examination up to third part of duodenum was normal. For colonoscopy: The quality of the prep was extremely poor. As a result, detailed evaluation of mucosa was impossible; however, the examination through the entire colon and cecum was normal. Even significant lesions of polyps could have been missed during the examination due to the poor quality of prep. It was impossible to visualize the terminal ileum, because of the poor prep. RECOMMENDATIONS 1. It is highly likely the patient's gastric ulcers are due to concurrent use of non-steroidals. 2. The presence of Crohn disease is highly debatable; however, in view of the fact the terminal ileum could not be evaluated. It is purely conjecture. I seriously doubt the patient has Crohn's however. 3. Start using pantoprazole 40 mg p.o. b.i.d. at least for the next 3 months and minimize the use of NSAIDs. 4. The patient can be discharged home from gastrointestinal standpoint. SEDATION USED MAC. DESCRIPTION OF PROCEDURE Following detailed explanation of potential risks and complications of an upper endoscopy and a colonoscopy, namely perforation, bleeding, and complication related to sedation, the patient was brought to GI lab and Unit #: [id number] #: [id number] Patient: VIVIANE NAYAK laid in the left lateral decubitus position. Lubricated tip of the Olympus video upper endoscope was passed through the bite block into the proximal esophagus under direct vision. The entire esophageal mucosa was examined. The patient was noted to have distal confluent ulcerative esophagitis of moderate severity. In addition, an esophageal ring and a hiatus hernia were also noted. The scope was then advanced into the gastric cavity and the latter was insufflated. Mucosa of the fundus, body, and antrum was examined and the patient was noted to have two gastric ulcers. The first one was a small posterior ulcer about 4 to 5 mm in size in the posterior aspect of the antrum. This had a grayish white ulcer base. The second one was a large 1 cm ulcer with a deep crater anteriorly in the antrum. Pylorus was intubated with visualization of the normal duodenal bulb and second and third part of the duodenum. Upon withdrawal and retroflexion, incisura, cardia, and greater curve was examined and biopsy was obtained from the antrum for CLOtest. The scope was then withdrawn in the distal esophagus. The entire esophageal mucosa was examined all the way up to pharynx, no additional findings were noted. The examination table was then turned by 180 degrees and the patient positioned for a colonoscopy. A digital rectal examination was performed, which was normal. Lubricated tip of the Olympus video colonoscope was inserted through the anus and advanced under direct vision. The scope was advanced past rectosigmoid into descending colon. No diverticula were seen in this area. The scope tip was then navigated all the way up to cecum with visualization of the ileocecal valve and the cecal strap. Quality of the prep was quite poor especially in the right colon. There were lot of brownish black stool residue was seen. As a result, detailed mucosal examination was impossible. Also, examination of the terminal ileum was impossible as a result of the poor prep. Successive segments of the colonic mucosa were examined upon withdrawal and within the limitations of poor prep, the examination was normal. No polyps, diverticula, or hemorrhoids were seen. The scope was then withdrawn and the patient returned to the recovery area. She tolerated the procedure without any postprocedure complications. Dictated by.Constantino. Victor M Russell/bhavna TD: 02/05/2017 05:21 JOB #: [id number] OPERATIVE REPORT Page 1 of 1 X Luis Miguel Damico MD PROCEDURE OPERATIVE NOTE
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
--- NOTE | ~2017-02-03 | CR2 ---
[facility] A Service of [facility] RADIOLOGY TEXT RESULTS PATIENT: VIVIANE NAYAK LOCATION: A 242-01 : [birth year] UNIT #: [id number] AGE: [address]: Amadeo Keene MD SEX: F ORDER DR: [id number] [facility] [address] [facility]. [place], [place] [address] [id number] I MR#: [id number] Acc #: [id number] NAME: VIVIANE NAYAK : 1980 SEX: F STUDY DATE/TIME: 02/03/2017 20:53 UNIT: [id number] ROOM: [facility] STUDY DESCRIPTION: CR Abdomen Acute Series Attending Physician: Ronda Mike M.D. Ordering Physician: Kashmir Fine M.D. Primary Care Physician: Primary Care Physician No MEDICAL IMAGING REPORT This report is preliminary unless electronic signature is present EXAM Acute abdominal series HISTORY Abdominal pain, nausea, vomiting for 3 days. FINDINGS PA upright view of the chest demonstrates no acute cardiopulmonary disease. No free air is noted under the diaphragms. Supine and upright views of the abdomen demonstrates a nonspecific bowel gas pattern, no evidence of high-grade obstruction. Small amount of gastric small bowel and colonic gas noted. Surgical clips in the right upper quadrant suggest prior cholecystectomy. Osseous structures unremarkable. No organomegaly. IMPRESSION Unremarkable acute abdominal series. Dictated by... Saúl Correia M.D. THIS IS AN ELECTRONICALLY VERIFIED REPORT Saúl Correia M.D. at 02/04/2017 1:08 PM CHASTITY/trinidad TD: 02/03/2017 23:41 JOB #: [id number] MEDICAL IMAGING REPORT Page 1 of 1 COPY
--- NOTE | ~2017-02-03 | EKG ---
PATIENT: VIVIANE NAYAK UNIT #: [id number] Ventricular Rate: 53 BPM Atrial Rate: 53 BPM P-R Interval: 164 ms QRS Duration: 100 ms Q-T Interval: 436 ms QTC Calculation(Bezet): 409 ms P [place]wai: 52 degrees Calculated R [place]: 23 degrees Calculated T [place]: 32 degrees Diagnosis Line: Sinus bradycardia with sinus arrhythmia Diagnosis Line: Otherwise normal ECG Diagnosis Line: When compared with ECG of 23-OCT-2014 02:24, Diagnosis Line: No significant change was found Diagnosis Line: Confirmed by VIVIENNE KINGSLEY MD ([id number]) on Diagnosis Line: 02/04/2017 7:17:19 AM INTERPRETING MD: SISI
--- NOTE | ~2017-02-03 | EKG ---
PATIENT: VIVIANE NAYAK UNIT #: [id number] Ventricular Rate: 49 BPM Atrial Rate: 49 BPM P-R Interval: 170 ms QRS Duration: 98 ms Q-T Interval: 462 ms QTC Calculation(Bezet): 417 ms P Carbon: 66 degrees Calculated R Carbon: 26 degrees Calculated T Carbon: 46 degrees Diagnosis Line: Marked sinus bradycardia Borderline ECG Diagnosis Line: When compared with ECG of 03-FEB-2017 17:32, Diagnosis Line: No significant change was found Diagnosis Line: Confirmed by DONYA BALTAZAR MD ([id number]) on 02/04/2017 Diagnosis Line: 10:22:18 PM INTERPRETING MD: DELANEY GARAY
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
--- NOTE | ~2017-02-03 | HP ---
Unit #: [id number] #: [id number] Patient: VIVIANE NAYAK [id number] [address] [address] [id number] MR#: [id number] NAME: VIVIANE NAYAK ROOM: 01074 Age: 37 Sex: F Admission Date: 02/03/2017 : 1980 Attending Physician: Ronda Mike M.D. HISTORY AND PHYSICAL CHIEF COMPLAINT Abdominal pain, nausea, and vomiting. HISTORY OF PRESENT ILLNESS The patient is a 37-year-old female with a past medical history of hypertension, seizure disorder, Crohn disease, anxiety, depression, COPD, and polysubstance abuse, who presented to the emergency department for evaluation of the above. The patient states that she has had a two to three day history of abdominal pain. She states the pain is in her upper abdomen. She describes it as "sharp." It has been fairly constant in nature. There are no exacerbating or alleviating factors. She states that she had similar pain when she had appendicitis. She reports more than 10 bouts of nonbloody emesis within the past 24 hours and more than 10 bouts of nonbloody diarrhea within the past 24 hours. In the emergency department, initial pulse and blood pressure were 78 and 144/90, respectively. Laboratory is notable for a potassium of 3.1. Lipase and amylase are normal. White blood cell count 16.5. She is being admitted to [facility] for evaluation and further treatment. PAST MEDICAL HISTORY 1. Admission to [facility] February 02, 2017, for altered mental status. There is no Discharge Summary, but per the History and Physical, Neurology and Psychiatry were both consulted. It appears that the patient left against medical advice. 2. Crohn disease not followed by Gastroenterology and not on any medication related to Crohn for at least the past five years. She states that her last endoscopy was more than 10 years ago at [facility]. 3. Seizure disorder maintained on Keppra. 4. Hypertension. 5. Chronic obstructive pulmonary disease with continued tobacco abuse. 6. Polysubstance abuse. 7. Anxiety and depression. 8. History of opioid dependence. The patient was previously at the methadone clinic but now is followed by (1) and receives an unknown injection every 28 days. PAST SURGICAL HISTORY 1. Cholecystectomy. 2. Right knee surgery. Unit #: [id number] #: [id number] Patient: VIVIANE NAYAK 3. Right arm surgery. 4. Endoscopy. SOCIAL HISTORY The patient lives with her dad. She continues to smoke a quarter pack of cigarettes daily. She denies alcohol or illicit drug use. She is on disability. FAMILY HISTORY Notable for her maternal grandmother having diabetes. ALLERGIES Cephalosporin, peanuts, latex. HOME MEDICATIONS 1. Simethicone. 2. BuSpar. 3. [place]. 4. Diclofenac. 5. Vistaril. 6. Keppra. 7. Zyrtec. 8. Buprenorphine and naloxone. 9. Acetadryl. Home medications will need to be reviewed and verified. REVIEW OF SYSTEMS A complete review of systems is negative except as indicated in the History of Present Illness. The patient states that she has lost about 20 pounds over the past two months that she attributes to decreased appetite. She denies any suicidal or homicidal ideations. The patient denies any recent antibiotics. No abnormal foods or recent travel. PHYSICAL EXAMINATION VITAL SIGNS: Temperature is 98.3, pulse 78, respirations 18, blood pressure 144/90, and oxygen saturation 95% on room air. GENERAL: Patient is a female who is sleeping but wakes to voice. HEENT: Head is atraumatic. Mucous membranes are dry. NECK: Supple. Trachea is midline. CARDIOVASCULAR: Regular rate and rhythm. LUNGS: Clear to auscultation bilaterally with no increased work of breathing. ABDOMEN: Soft. She is mildly tender to palpation in the epigastric area. Bowel sounds are present in all four quadrants. EXTREMITIES: Nontender with no pedal edema. NEUROLOGIC: Patient is awake and alert. She follows commands. PSYCHIATRIC: Mood and affect are normal. Patient is cooperative. SKIN: Skin of examined areas is warm and dry. DIAGNOSTIC STUDIES LABORATORY: Blood cultures from February 01 showed no growth after 24 hours. Comprehensive metabolic panel from today notable for a potassium of 3.1, glucose 132, and ALT is 41. Amylase and lipase are normal. Complete blood count notable for white blood cell count of 16.5. [place] level is 0.1. IMAGING: Chest x-ray from the showed no active process. Unit #: [id number] #: [id number] Patient: VIVIANE NAYAK CARDIOLOGY: EKG shows sinus bradycardia with sinus arrhythmia and a rate of 53 beats per minute. ASSESSMENT The patient is a 37-year-old female with: 1. Abdominal pain. 2. Intractable nausea, vomiting, and diarrhea. 3. Hypokalemia. The patient received 40 mEq of potassium in the emergency department. 4. Leukocytosis. The patient's white blood cell count was 17.5 yesterday. It is 16.5 today. Blood cultures from February 01 have shown no growth after 24 hours x2. She also had a chest x-ray February 01 that showed no active process. Urinalysis is pending today. 5. Hypertension. 6. Seizure disorder, maintained on Keppra. 7. Crohn disease not followed by Gastroenterology and not on any medication for at least the past five years. Last endoscopy was more than 10 years ago. 8. Anxiety and depression. 9. Chronic obstructive pulmonary disease with continued tobacco abuse. 10. Polysubstance abuse. 11. Weight loss. PLAN 1. Admit for observation to intermediate level. 2. N.p.o. and will advance to clear liquids are tolerated. 3. Normal saline at 125 mL/hour. 4. P.r.n. Zofran. 5. P.r.n. Toradol. 6. Stool studies including ova and parasites, C. difficile, culture and sensitivity. 7. Check urinalysis with culture and sensitivity. 8. Urine toxicology screen. 9. Check magnesium level. 10. Potassium/magnesium protocol. 11. Blood cultures x2 for further evaluation of leukocytosis. 12. TSH. 13. Repeat labs in the morning including magnesium. 14. SCDs for DVT prophylaxis. 15. Additional workup and consultants based on above. 1. Dictated by Victor M Hughes/arcenio TD: 02/03/2017 20:33 JOB #: [id number] Unit #: [id number] #: [id number] Patient: VIVIANE NAYAK HISTORY AND PHYSICAL Page 1 of 1 X Ronda Mike MD X HISTORY AND PHYSICAL
[~2017-02-03 17:27] MED LIST changes: +ACETADRYL 500-1 EACH PO; +BUPRENORPHIN-N1 EACH SL; +BUSPAR5 M1 PO; +KEPPRA750 M1 PO; +LITHIUM CARBON450 M1 PO; +SIMETHICONE125 M1 PO; +VISTARIL PO; +VOLTAREN75 MG PO; +ZYRTEC10 M2 PO
[2017-02-03 17:47] LABS: BASOPHIL# 0.1 X10e3 (0-0.3); BASOPHIL% 0.4 % (0-2.5); HEMATOCRIT 42.8 % (35.0-45.0); HEMOGLOBIN 13.5 gm/dL (12.0-16.0); LYMPHOCYTE# 1.7 X10e3 (1.0-3.5); LYMPHOCYTE% 10.3 % (17.0-45.0); MEAN CELL VOLUME 84.6 FL (83-96); MEAN CORPUSCULAR HEMOGLOBIN 26.6 PG (28-34); MEAN CORPUSCULAR HGB CONC 31.5 g/dL (30-36); MONOCYTE# 0.6 X10e3 (0-1.0); MONOCYTE% 3.7 % (3.0-12.0); NEUTROPHIL# 14.2 X10e3 (1.5-7.1); NEUTROPHIL% 85.6 % (40-75); PLATELET COUNT 374 X10e3 (140-420); RED BLOOD COUNT 5.06 X10e (3.90-5.30); RED CELL DISTRIBUTION WIDTH 16.7 % (11.0-15.5); WHITE BLOOD COUNT 16.5 X10e3 (4.0-10.5)
[2017-02-03 17:53] LABS: DIFF IND YES
[2017-02-03 18:05] LABS: ALBUMIN SERUM 4.6 g/dL (3.5-5.0); BILIRUBIN, DIRECT 0.1 mg/dL (0.0-0.2); BILIRUBIN,INDIRECT 0.5 mg/dL (0.0-0.9); BILIRUBIN,TOTAL 0.6 mg/dL (0.2-2.0); BUN/CREATININE RATIO 13.33; CALCIUM SERUM 9.7 mg/dL (8.4-10.2); CREATININE SERUM 0.9 mg/dL (0.6-1.4); GLOM FILT RATE Estimated 80.6 mL/min (>60); POTASSIUM 3.1 mmol/L (3.5-5.1); PROTEIN TOTAL SERUM 7.6 g/dL (6.0-8.3)
[2017-02-03 18:15] LABS: ANISOCYTOSIS SL; PLATELET ESTIMATE NORMAL (NORMAL)
[2017-02-03 19:51] LABS: URINE SOURCE CLEAN CATCH
[2017-02-03 20:04] LABS: URINE APPEARANCE CLOUDY; URINE BILIRUBIN NEG (NEG); URINE BLOOD 1+ (NEG); URINE COLOR DK YELLOW; URINE GLUCOSE NEG (NEG); URINE KETONE TRACE (NEG); URINE LEUKOCYTE ESTERASE NEG (NEG); URINE NITRATE NEG (NEG); URINE PH 6.5 (5-8); URINE PROTEIN TRACE (NEG)
[2017-02-03 20:06] LABS: URINE BACTERIA AUWI NEG (NEGATIVE); URINE SQUAMOUS EPITHELIAL CELL OCC /[HPF]
[2017-02-03 20:09] LABS: CULTURE INDICATED? NO
[2017-02-03 20:28] LABS: AMPHETAMINE NEG (NEG); BARBITURATES NEG (NEG); BENZODIAZEPINES POS (NEG); COCAINE NEG (NEG); MARIJUANA NEG (NEG); OPIATES NEG (NEG); TRICYCLIC ANTIDEPRESSANTS POS (NEG); U METHADONE NEG (NEG)
[2017-02-04 07:25] LABS: BASOPHIL# 0.1 X10e3 (0-0.3); BASOPHIL% 0.5 % (0-2.5); EOSINOPHIL% 0.1 % (0.0-7.0); HEMATOCRIT 39.7 % (35.0-45.0); HEMOGLOBIN 12.4 gm/dL (12.0-16.0); LYMPHOCYTE# 2.5 X10e3 (1.0-3.5); LYMPHOCYTE% 13.9 % (17.0-45.0); MEAN CELL VOLUME 85.2 FL (83-96); MEAN CORPUSCULAR HEMOGLOBIN 26.7 PG (28-34); MEAN CORPUSCULAR HGB CONC 31.3 g/dL (30-36); MONOCYTE% 5.7 % (3.0-12.0); NEUTROPHIL# 14.5 X10e3 (1.5-7.1); NEUTROPHIL% 79.8 % (40-75); PLATELET COUNT 305 X10e3 (140-420); RED BLOOD COUNT 4.65 X10e (3.90-5.30); WHITE BLOOD COUNT 18.1 X10e3 (4.0-10.5)
[2017-02-04 07:26] LABS: DIFF IND NO
[2017-02-04 07:47] LABS: BILIRUBIN,TOTAL 0.7 mg/dL (0.2-2.0); BUN/CREATININE RATIO 16.66; CALCIUM SERUM 9.3 mg/dL (8.4-10.2); CREATININE SERUM 0.9 mg/dL (0.6-1.4); GLOM FILT RATE Estimated 80.6 mL/min (>60); MAGNESIUM 1.9 mg/dL (1.6-3.0); PROTEIN TOTAL SERUM 6.7 g/dL (6.0-8.3)
[2017-02-05 08:59] LABS: HEMATOCRIT 40.6 % (35.0-45.0); HEMOGLOBIN 12.9 gm/dL (12.0-16.0); MEAN CELL VOLUME 84.7 FL (83-96); MEAN CORPUSCULAR HEMOGLOBIN 26.9 PG (28-34); MEAN CORPUSCULAR HGB CONC 31.7 g/dL (30-36); RED BLOOD COUNT 4.79 X10e (3.90-5.30); RED CELL DISTRIBUTION WIDTH 16.4 % (11.0-15.5); WHITE BLOOD COUNT 14.8 X10e3 (4.0-10.5)
[2017-02-05 09:44] LABS: BUN/CREATININE RATIO 12.85; CREATININE SERUM 0.7 mg/dL (0.6-1.4); GLOM FILT RATE Estimated 109.1 mL/min (>60); POTASSIUM 3.2 mmol/L (3.5-5.1)
== END 2017-02-05 09:52 | disposition left against medical advice (07) ==
LOC: CED 17:27 → CEDOF 19:50 → C3A PCU 21:11 → C2A 02-04 11:48
PROVIDERS: Emergency Medicine; Family Medicine
PROC: 0DB78ZX Excision of Stomach, Pylorus, Via Natural or Artificial Opening Endoscopic, Diagnostic (ICD-10-PCS; principal; 2017-02-03)
PROC: 0DJD8ZZ Inspection of Lower Intestinal Tract, Via Natural or Artificial Opening Endoscopic (ICD-10-PCS; 2017-02-03)
DX: K25.9 Gastric ulcer, unspecified as acute or chronic, without hemorrhage or perforation (principal); K22.10 Ulcer of esophagus without bleeding; K44.9 Diaphragmatic hernia without obstruction or gangrene; K29.60 Other gastritis without bleeding; Z91.19 Patient's noncompliance with other medical treatment and regimen; K50.90 Crohn's disease, unspecified, without complications; K22.2 Esophageal obstruction; R11.2 Nausea with vomiting, unspecified; R10.9 Unspecified abdominal pain; R19.7 Diarrhea, unspecified; E87.6 Hypokalemia; D72.829 Elevated white blood cell count, unspecified; F33.2 Major depressive disorder, recurrent severe without psychotic features; J44.9 Chronic obstructive pulmonary disease, unspecified; I10 Essential (primary) hypertension; G40.909 Epilepsy, unspecified, not intractable, without status epilepticus; F41.8 Other specified anxiety disorders; F11.20 Opioid dependence, uncomplicated; R16.0 Hepatomegaly, not elsewhere classified; F17.210 Nicotine dependence, cigarettes, uncomplicated; K76.0 Fatty (change of) liver, not elsewhere classified; N83.201 Unspecified ovarian cyst, right side; M79.9 Soft tissue disorder, unspecified; Z79.899 Other long term (current) drug therapy; Z86.19 Personal history of other infectious and parasitic diseases; Z82.49 Family history of ischemic heart disease and other diseases of the circulatory system; Z83.3 Family history of diabetes mellitus; Z90.49 Acquired absence of other specified parts of digestive tract; Z98.51 Tubal ligation status; Z91.010 Allergy to peanuts; Z91.040 Latex allergy status; Z88.1 Allergy status to other antibiotic agents; Z88.8 Allergy status to other drugs, medicaments and biological substances
CPT/HCPCS: 36415; 74022; 74177; 80048; 80053; 80076; 80178; 80307; 81003; 82150; 83690; 83735; 84443; 84703; 85025; 85027; 87040; 87077; 87086; 93005; 96361; 96365; 96374; 96375; 96376; 99285; G0378; J0360; J1885; J1953; J2060; J2405; J2550; Q9967

== ENCOUNTER 2017-04-10 18:31 | Emergency (ER) | payer OTHER ==
[2017-04-10 19:34] LABS: BASOPHIL# 0.1 X10e3 (0-0.3); BASOPHIL% 0.8 % (0-2.5); EOSINOPHIL# 0.1 X10e3 (0-0.7); EOSINOPHIL% 0.9 % (0.0-7.0); HEMATOCRIT 41.8 % (35.0-45.0); HEMOGLOBIN 13.2 gm/dL (12.0-16.0); LYMPHOCYTE# 3.7 X10e3 (1.0-3.5); LYMPHOCYTE% 26.8 % (17.0-45.0); MEAN CELL VOLUME 83.7 FL (83-96); MEAN CORPUSCULAR HEMOGLOBIN 26.5 PG (28-34); MEAN CORPUSCULAR HGB CONC 31.6 g/dL (30-36); MEAN PLATELET VOLUME 8.4 FL (6.5-11.5); MONOCYTE# 1.3 X10e3 (0-1.0); MONOCYTE% 9.2 % (3.0-12.0); NEUTROPHIL# 8.7 X10e3 (1.5-7.1); NEUTROPHIL% 62.3 % (40-75); PLATELET COUNT 360 X10e3 (140-420); RED CELL DISTRIBUTION WIDTH 15.1 % (11.0-15.5); WHITE BLOOD COUNT 13.9 X10e3 (4.0-10.5)
[2017-04-10 19:42] LABS: URINE SOURCE CLEAN CATCH
[2017-04-10 19:42] LABS: DIFF IND NO
[2017-04-10 19:48] LABS: URINE APPEARANCE TURBID; URINE BILIRUBIN NEG (NEG); URINE BLOOD TRACE (NEG); URINE COLOR YELLOW; URINE GLUCOSE NEG (NEG); URINE KETONE TRACE (NEG); URINE LEUKOCYTE ESTERASE 1+ (NEG); URINE NITRATE POS (NEG); URINE PROTEIN 1+ (NEG); URINE UROBILINOGEN 0.2 MG/DL (NEG)
[2017-04-10 19:50] LABS: CULTURE INDICATED? YES; URINE BACTERIA AUWI 4+ (NEGATIVE); URINE SQUAMOUS EPITHELIAL CELL MOD /[HPF]
[2017-04-10 19:56] LABS: ALCOHOL BLOOD <5 mg/dL (0); BLOOD UREA NITROGEN 10 mg/dL (9-23); BUN/CREATININE RATIO 11.11; CALCIUM SERUM 9.5 mg/dL (8.4-10.2); CARBON DIOXIDE 23 mmol/L (22-31); CHLORIDE 107 mmol/L (100-111); CREATININE SERUM 0.9 mg/dL (0.6-1.4); GLOM FILT RATE Estimated 80.6 mL/min (>60); GLUCOSE FASTING 102 mg/dL (70-110); POTASSIUM 3.1 mmol/L (3.5-5.1); SODIUM 140 mmol/L (135-145)
[2017-04-10 20:01] LABS: AMPHETAMINE POS (NEG); BARBITURATES NEG (NEG); BENZODIAZEPINES NEG (NEG); COCAINE NEG (NEG); MARIJUANA POS (NEG); OPIATES NEG (NEG); TRICYCLIC ANTIDEPRESSANTS POS (NEG); U METHADONE NEG (NEG)
[2017-04-10 20:06] LABS: URINE AMORPHOUS SEDIMENT AMORP PHOSPHATES
== END 2017-04-10 22:20 | disposition home or self-care (01) ==
LOC: CED 18:31
PROVIDERS: Student in an Organized Health Care Education/Training Program
DX: G40.909 Epilepsy, unspecified, not intractable, without status epilepticus (principal); N39.0 Urinary tract infection, site not specified; F19.10 Other psychoactive substance abuse, uncomplicated; J44.9 Chronic obstructive pulmonary disease, unspecified; F41.9 Anxiety disorder, unspecified; F17.200 Nicotine dependence, unspecified, uncomplicated; Z91.040 Latex allergy status; Z88.8 Allergy status to other drugs, medicaments and biological substances; Z98.51 Tubal ligation status
CPT/HCPCS: 80048; 80307; 81003; 82947; 83735; 84703; 85025; 87086; 87088; 87186; 96374; 96375; 99284; G0480; J1953; J2060; J2405

== ENCOUNTER 2017-05-24 14:00 | Inpatient (IN) | payer OTHER ==
[~2017-05-24] VITALS: Ht 175.3 cm; Wt 83.9 kg
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
--- NOTE | ~2017-05-24 | HP ---
Unit #: [id number] #: [id number] Patient: VIVIANE NAYAK [id number] [place] [address] [id number] MR#: [id number] NAME: VIVIANE NAYAK ROOM: P121 Age: 37 Sex: F Admission Date: 05/24/2017 : 1980 Attending Physician: Bc Armendariz M.D. Admitting Physician: Bc Armendariz M.D. Primary Care Physician: Primary Care Physician No HISTORY AND PHYSICAL HISTORY OF PRESENT ILLNESS Viviane is a 37-year-old female admitted on 05/24/[address] [place] [address] for depression, suicidal ideation, and psychosis. PAST MEDICAL HISTORY Hypertension, Crohn's disease, seizure disorder, and COPD. PAST SURGICAL HISTORY Endoscopy, cholecystectomy, right knee surgical repair, and a right arm surgical repair after fracture. SOCIAL HISTORY Smokes less than a pack of cigarettes daily. Denies alcohol or illegal drug use. She is currently single and living with her father. FAMILY HISTORY Noncontributory. REVIEW OF SYSTEMS CONSTITUTIONAL: No fever or chills. HEENT: Denies any sore throat, ear pain or runny nose. CARDIOVASCULAR: Denies chest pain, irregular heart rhythm or palpitations. CHEST: Denies shortness of breath or cough. No hemoptysis. GASTROINTESTINAL: Denies nausea, vomiting, diarrhea or chronic constipation. ENDOCRINE: Denies history of increased thirst or urination. No recent significant weight loss or gain. GENITOURINARY: Denies dysuria, frequency, or hematuria. SKIN: Denies any rashes. HEMATOLOGIC: Denies history of increased bleeding or bruising. MUSCULOSKELETAL: Denies any hot, swollen joints. No generalized muscle pain. NEUROLOGIC: Denies problems with vision or speech. No frequent, severe headaches. No numbness, tingling or weakness in any extremities. Denies loss of bladder or bowel control. CURRENT MEDICATIONS None. ALLERGIES To cephalosporins and latex. PHYSICAL EXAMINATION Unit #: [id number] #: [id number] Patient: VIVIANE NAYAK GENERAL: Alert, oriented, no acute distress. VITAL SIGNS: Blood pressure 143/95, heart rate 81. HEIGHT: 5 feet 1. WEIGHT: 185 pounds. SKIN: Warm, dry. No rashes or lesions, track mares, cuts, etc. HEENT: Normocephalic. TMs not viewed. Oronasal passages clear. Conjunctivae clear. PERRLA. EOM is intact. NECK: No lymphadenopathy or thyromegaly. HEART: Regular rate and rhythm. No murmur, gallop, or rub. LUNGS: Clear to auscultation bilaterally. ABDOMEN: Soft, nontender without palpable masses or hepatosplenomegaly. : Not assessed. EXTREMITIES: No evidence of cyanosis, clubbing, or edema. Moves all extremities independently without obvious deficit. NEUROLOGICAL: Grossly within normal limits. Cranial Nerves: II: Visual smith are intact. III, IV AND : Extraocular movements are intact. Pupils are equal, round and reactive to light. V: Facial sensation is grossly normal. VII: Facial movements and expression are normal. VIII: Auditory acuity grossly intact. IX, X: Uvula is midline. Phonation is normal. XI: Patient shrugs shoulders and turns head normally. XII: Tongue protrudes in the midline. Sensory and Motor Function: Sensory and motor sensation is grossly normal. Motor: moves all extremities well. Coordination: Gait is normal. Deep Tendon Reflexes: Intact. IMPRESSION Psychiatric admission, hypertension, COPD, Crohn's disease, seizure disorder. RECOMMENDATIONS PSYCHIATRIC: Per psychiatrist. MEDICAL: No contraindication to participating in this facility's activities. MEDICAL PROGNOSIS Good. MEDICAL CONDITION Stable. Dictated by..Perry Fong TD: 05/25/2017 14:28 JOB #: [id number] Unit #: [id number] #: [id number] Patient: VIVIANE NAYAK HISTORY AND PHYSICAL Page 1 of 1 X EDGAR JETT APRN HISTORY AND PHYSICAL
[2017-05-25 12:38] LABS: BASOPHIL# 0.2 X10e3 (0-0.3); BASOPHIL% 1.9 % (0-2.5); EOSINOPHIL# 0.6 X10e3 (0-0.7); EOSINOPHIL% 6.3 % (0.0-7.0); HEMATOCRIT 37.6 % (35.0-45.0); HEMOGLOBIN 12.2 gm/dL (12.0-16.0); LYMPHOCYTE% 32.6 % (17.0-45.0); MEAN CELL VOLUME 82.7 FL (83-96); MEAN CORPUSCULAR HEMOGLOBIN 26.7 PG (28-34); MEAN CORPUSCULAR HGB CONC 32.3 g/dL (30-36); MEAN PLATELET VOLUME 8.6 FL (6.5-11.5); MONOCYTE# 0.6 X10e3 (0-1.0); MONOCYTE% 6.4 % (3.0-12.0); NEUTROPHIL# 4.9 X10e3 (1.5-7.1); NEUTROPHIL% 52.8 % (40-75); PLATELET COUNT 344 X10e3 (140-420); RED BLOOD COUNT 4.55 X10e (3.90-5.30); RED CELL DISTRIBUTION WIDTH 16.2 % (11.0-15.5); WHITE BLOOD COUNT 9.3 X10e3 (4.0-10.5)
[2017-05-25 12:45] LABS: DIFF IND NO
[2017-05-25 13:02] LABS: THYROID STIMULATING HORMONE 1.66 uIU/ml (0.34-5.60)
[2017-05-25 13:07] LABS: ALBUMIN SERUM 3.2 g/dL (3.5-5.0); BILIRUBIN,TOTAL 0.4 mg/dL (0.2-2.0); BUN/CREATININE RATIO 13.33; CALCIUM SERUM 9.2 mg/dL (8.4-10.2); CREATININE SERUM 0.6 mg/dL (0.6-1.4); GLOM FILT RATE Estimated 114.8 mL/min (>60); POTASSIUM 3.9 mmol/L (3.5-5.1); PROTEIN TOTAL SERUM 5.8 g/dL (6.0-8.3)
[2017-05-25 13:08] LABS: FREE THYROXIN (T4) 0.83 ng/dL (0.58-1.64)
[2017-05-27 09:51] LABS: URINE APPEARANCE CLEAR; URINE BILIRUBIN NEG (NEG); URINE BLOOD NEG (NEG); URINE COLOR YELLOW; URINE GLUCOSE NEG (NEG); URINE KETONE NEG (NEG); URINE LEUKOCYTE ESTERASE 2+ (NEG); URINE NITRATE NEG (NEG); URINE PH 7.5 (5-8); URINE PROTEIN NEG (NEG); URINE SPECIFIC GRAVITY 1.009 (1.003-1.035); URINE UROBILINOGEN 0.2 MG/DL (NEG)
[2017-05-27 09:56] LABS: URINE BACTERIA AUWI 1+ (NEGATIVE); URINE SQUAMOUS EPITHELIAL CELL FEW /[HPF]
[2017-05-27 10:07] LABS: AMPHETAMINE NEG (NEG); BARBITURATES NEG (NEG); BENZODIAZEPINES NEG (NEG); COCAINE NEG (NEG); MARIJUANA NEG (NEG); OPIATES NEG (NEG); TRICYCLIC ANTIDEPRESSANTS NEG (NEG); U METHADONE NEG (NEG)
[2017-05-27 10:10] LABS: URBCS1 AUWI NEG /[HPF] (0-2)
[2017-05-29 11:14] LABS: CHLAMYDIA TRACH Not Detected (Not Detected); N GONOR Not Detected (Not Detected)
[2017-05-31 19:16] LABS: HA AB IGM (HEPPAN) Nonreactive (()); HB CORE AB IGM (HEPPAN) Nonreactive (Nonreactive); HB S AG (HEPPAN) Nonreactive (Nonreactive); HEP C AB (HEPPAN) Reactive (Nonreactive)
== END 2017-05-27 13:04 | disposition home or self-care (01) | DRG 885 ==
LOC: P1S 16:29
PROVIDERS: Psychiatry & Neurology Psychiatry
DX: F31.9 Bipolar disorder, unspecified (principal); R45.851 Suicidal ideations; T76.21XA Adult sexual abuse, suspected, initial encounter; F60.3 Borderline personality disorder; Z88.1 Allergy status to other antibiotic agents; G40.909 Epilepsy, unspecified, not intractable, without status epilepticus; Z81.3 Family history of other psychoactive substance abuse and dependence; I10 Essential (primary) hypertension; F29 Unspecified psychosis not due to a substance or known physiological condition; Z90.49 Acquired absence of other specified parts of digestive tract; F17.210 Nicotine dependence, cigarettes, uncomplicated
CPT/HCPCS: 80053; 80074; 80307; 81003; 84439; 84443; 84703; 85025; 86592; 87491; 87522; 87591; 87806